=== PATIENT | female | born 1975 | race Caucasian/White ===

== ENCOUNTER → 2019-10-21 10:25 | Outpatient (CLI) | payer BC, SELFPAY ==
--- NOTE | ~2019-10-21 | US_ITS ---
EXAMINATION: US thyroid EXAM DATE: 10/21/2019 10:48 INDICATION: Nontoxic thyroid nodule. TECHNIQUE: Multiple grayscale and Doppler images of the thyroid were obtained (by a technologist who performed the scan) and subsequently reviewed. Individual nodules and recommendations may be reporte d in accordance with TI-RADS system as designated by the 2017 ACR White Paper TI-RADS committee. The re is no prior study for comparison. FINDINGS: The right thyroid lobe measures 5.0 x 1.4 x 1.5 cm, the left measuring 4.9 x 1.4 x 1.8 cm. Homogeneou s thyroid echogenicity with several small nodules. Largest thyroid nodule is in the left thyroid lobe measuring 1.7 x 0.7 x 0.6 centimeters, solid (2 po ints), hypoechoic (2 points), wider than tall, I'll-defined margin, containing punctate echogenic foc i (3 points), category TR5 for this nodule. Next largest nodule also in the left thyroid lobe measuring 1.0 x 1.3 x 1.1 centimeters, predominantl y solid (2 points), hypoechoic (2 points), wider than tall, smooth margin, without echogenic foci, ca tegory TR4 for this nodule. Several other category TR 4 nodules are smaller. IMPRESSION: 1. Multinodular goiter; largest left thyroid lobe nodule is large enough to recommend ultrasound-chirag ded biopsy. Reviewed, dictated and finalized at location B. IMPRESSION: 1. Multinodular goiter; largest left thyroid lobe nodule is large enough to re commend ultrasound-guided biopsy.
== END ==
PROVIDERS: Visit Provider Nurse Practitioner
DX: E04.2 Nontoxic multinodular goiter (principal)
CPT/HCPCS: 76536

== ENCOUNTER 2019-11-26 13:12 | Outpatient (CLI) | payer BC, SELFPAY ==
--- NOTE | ~2019-11-26 | US_ITS ---
EXAMINATION: US FNA w image guidance DATE: 11/26/2019 14:16 INDICATION: Nontoxic single thyroid nodule. TECHNIQUE: The procedure and its benefits, risks, and benefits were discussed with the patient. Risks specifical ly discussed included bleeding. The patient verbalized understanding of the risks and agreed to proce ed. The neck was prepped and draped in the usual sterile manner. 1% lidocaine was used for local ane sthesia. 5 passes were made with a 25G needle into the lesion. Appropriate needle location was docu mented with continuous sonographic guidance. There were no immediate complications. The patient unde rstood to call the ordering physician for results after a week and a half and verbalized that underst anding. FINDINGS: Grayscale ultrasound images demonstrate needles advanced into a 1.7 cm nodule in left thyroid lobe fo r biopsy. IMPRESSION: 1. Ultrasound-guided fine needle aspiration of a left thyroid nodule. Reviewed, dictated and finalized at location A.
== END 2019-11-26 13:13 | disposition home or self-care (01) ==
PROVIDERS: Visit Provider Internal Medicine Endocrinology, Diabetes & Metabolism
DX: E04.1 Nontoxic single thyroid nodule (principal)
CPT/HCPCS: 10005; 88173; 88305

== ENCOUNTER → 2019-12-21 11:29 | Outpatient (CLI) | payer BC, SELFPAY ==
--- NOTE | ~2019-12-21 | MM_ITS ---
EXAMINATION: MM screening [facility] BI w tommie HISTORY: Screening mammogram TECHNIQUE: Craniocaudal and mediolateral oblique 3-D tomosynthesis images were obtained and synthetic 2-D images were generated. CAD analysis was submitted and interpreted. COMPARISON: No prior mammogram is available for comparison at this institution. BREAST PARENCHYMAL COMPOSITION: The breasts are extremely dense, which lowers the sensitivity of mamm ography. FINDINGS: A 10 mm circumscribed mass is suggested posteriorly in the inner aspect of the lower outer quadrant of the left breast (craniocaudal Tomosynthesis image ). Diagnostic left mammogram and le ft breast ultrasound examination are recommended. There is no evidence of suspicious mass, calcification, or architectural distortion to suggest malign josé miguel in either breast. There has been no suspicious interval change. IMPRESSION: 1. Possible 1 cm mass in the lower outer left breast 2. Diagnostic left mammogram and left breast ultrasound examination are recommended BI-RADS Category 0: Incomplete: Needs additional imaging evaluation. Reviewed, dictated and finalized at location A. IMPRESSION: 1. Possible 1 cm mass in the lower outer left breast 2. Diagnostic left mammogram and left breast ultrasound examination are recomme nded BI-RADS Category 0: Incomplete: Needs additional imaging evaluation.
== END ==
PROVIDERS: Visit Provider Nurse Practitioner
DX: Z12.31 Encounter for screening mammogram for malignant neoplasm of breast (principal); R92.8 Other abnormal and inconclusive findings on diagnostic imaging of breast
CPT/HCPCS: 77063; 77067

== ENCOUNTER → 2020-06-08 10:15 | Outpatient (CLI) | payer BC, SELFPAY ==
--- NOTE | ~2020-06-08 | US_ITS ---
EXAMINATION: US thyroid DATE: 06/08/2020 10:33 INDICATION: Thyroid nodule. TECHNIQUE: Multiple ultrasound images of the thyroid were obtained. COMPARISON: Ultrasound 10/21/2019 FINDINGS: The right thyroid lobe measures 5.4 x 1.7 x 1.5 cm. The left thyroid lobe measures 4.5 x 1.5 x 1.6 c m. In the left thyroid lobe, there is a 1.1 cm solid, hypoechoic, syouv-mrvl-ojoy nodule with lobula r margin without echogenic foci (TI-RADS TR4). In the left thyroid lobe, there is a 1.4 cm predominan tly solid, isoechoic, [id number]-rbzt-hfre nodule with irregular margin without echogenic foci (TR4). Ther e are subcentimeter nodules in the thyroid bilaterally. Two subcentimeter nodules in left thyroid lob e were measured as one nodule on prior imaging and demonstrated benign pathology at fine needle aspir ation on 11/26/19. IMPRESSION: 1. Stable thyroid nodules. Thyroid ultrasound is recommended in one year. Reviewed, dictated and finalized at location A.
== END ==
PROVIDERS: Visit Provider Internal Medicine Endocrinology, Diabetes & Metabolism
DX: E04.2 Nontoxic multinodular goiter (principal)
CPT/HCPCS: 76536